=== PATIENT | female | born 1955 | race Caucasian/White ===

== ENCOUNTER 2019-06-16 08:20 | Emergency (ER) | payer MEDICARE, BC ==
[~2019-06-16] VITALS: Ht 160 cm; Wt 86.5 kg
[~2019-06-16 08:20] MED LIST: ACET-915; BEN25 PO; IBUP-1542 PO; RSP.5T
[2019-06-16 08:26] VITALS: Ht 160 cm; Wt 86.5 kg
[2019-06-16] MEDS ORDERED: KETOROLAC 30 MG INJ IM STA (09:31)
--- NOTE | 2019-06-16 09:44 | ERD ---
ER Documentation Chief Complaint Chief Complaint headache since this am; dizziness; neuro intact HPI 64-year-old female with no reported past medical or surgical history who presents with complaint of headache and dizziness since this morning. She denies any prior history of headache. Describes headache as frontal type headache. Dizziness is intermittent and occurs both at rest and when she is ambulating. She otherwise denies fevers, chills, neck stiffness, nausea, vomiting, blurry vision, double vision, chest pain, shortness of breath, dyspnea, cough or recent illness, recent new medication use, recent travel. ROS All systems reviewed and are negative except as per history of present illness. Medications Home Meds Active Scripts Diphenhydramine Hcl* (Benadryl*) 25 Mg Cap, 25 MG PO Q6, #30 CAP Prov:CARLOS ASHER PA-C 06/16/19 Ibuprofen* (Motrin*) 600 Mg Tab, 600 MG PO Q6, #30 TAB Prov:JEUDINE,GETHO PA-C 06/16/19 Reported Medications Risperidone* (Risperdal*) 0.5 Mg Tablet 12/25/09 Acetaminophen* (Tylenol*) 325 Mg Tab 12/25/09 Allergies Allergies: Coded Allergies: No Known Allergies (Verified Allergy, Mild, 12/25/09) PMhx/Soc History of Surgery: Yes (OVARIAN REMOVAL,kidney stone removal) Hx Neurological Disorder: No Hx Respiratory Disorders: No Hx Cardiac Disorders: No Hx Miscellaneous Medical Probl: No Hx Alcohol Use: No Hx Substance Use: No Hx Tobacco Use: No Smoking Status: Never smoker FmHx Family History: No diabetes, No coronary disease, No other Physical Exam Vitals Vital Signs Date Temp Pulse Resp B/P (MAP) Pulse Ox O2 O2 Flow FiO2 Time Delivery Rate 06/16/19 97.1 84 20 167/78 98 08:26 (107) Physical Exam I have reviewed the triage vital signs. Const: Well nourished, well developed, appears stated age Eyes: PERRL, no conjunctival injection HENT: NCAT, Neck supple without meningismus, no nystagmus CV: RRR, Warm, well-perfused extremities RESP: CTAB, Unlabored respiratory effort GI: soft, non-tender, non-distended, no masses MSK: No gross deformities appreciated Skin: Warm, dry. No rashes Neuro: grossly non focal Psych: Appropriate mood and affect. Results 24 hrs Current Medications Medications Dose Sig/Yovani Start Time Status Last (Trade) Ordered Route PRN Stop Time Admin Dose Reason Admin Ketorolac 30 mg ONCE STAT 06/16/19 DC 06/16/19 Tromethamine IM 09:31 06/16/19 09:39 (Toradol) 09:34 25 mg ONCE ONCE 06/16/19 06/16/19 Diphenhydrami PO 10:00 06/16/19 09:38 ne HCl 10:01 (Benadryl) 10 mg ONCE ONCE 06/16/19 06/16/19 Metoclopramid IM 10:00 06/16/19 09:38 e HCl 10:01 (Reglan) Procedures/MDM This patient presents with a headache most consistent with primary type headache. Differential diagnosis includes migraine versus tension type headache. No headache red flags. Neurologic exam without evidence of meningismus, focal neurologic findings. Presentation not consistent with acute intracranial bleed to include SAH (lack of risk factors, headache history). Presentation not consistent with acute [employer]RAF[employer] infection to include meningitis or brain abscess, Temporal arteritis unlikely, as is acute angle closure glaucoma given history and physical findings. Presentation not consistent with other acute, emergent causes of headache at this time. Plan to treat symptomatically with pain medication. No indication for imaging/LP at this time. ED course: Toradol, Benadryl, Reglan, will discharge with symptomatic care, strict return precautions explained in detail DISPOSITION PLAN: We discussed follow up with the patient's primary care doctor within 24 to 48 hours. Patient counseled regarding my diagnostic impression and care plan. Prior to discharge all questions answered. Pt agrees with treatment plan and understands strict return precautions. Precautionary instructions provided including instructions to return to the ER if not improving or for any worsening or changing symptoms or concerns. Disclaimer: Inadvertent spelling and grammatical errors are likely due to EHR/dictation software use and do not reflect on the overall quality of patient care. Also, please note that the electronic time recorded on this note does not necessarily reflect the actual time of the patient encounter. Departure Diagnosis: Primary Impression: Dizziness Additional Impression: Headache Condition: Stable Patient Instructions: Self-Care for Headaches Referrals: COMM[facility] CLIN[facility] YOU HAVE RECEIVED A MEDICAL SCREENING EXAM AND THE RESULTS INDICATE THAT YOU DO NOT HAVE A CONDITION THAT REQUIRES URGENT TREATMENT IN THE EMERGENCY DEPARTMENT. FURTHER EVALUATION AND TREATMENT OF YOUR CONDITION CAN WAIT UNTIL YOU ARE SEEN IN YOUR DOCTORS OFFICE WITHIN THE NEXT 1-2 DAYS. IT IS YOUR RESPONSIBILITY TO MAKE AN APPOINTMENT FOR FOLOW-UP CARE. IF YOU HAVE A PRIMARY DOCTOR --you should call your primary doctor and schedule an appointment IF YOU DO NOT HAVE A PRIMARY DOCTOR YOU CAN CALL OUR PHYSICIAN REFERRAL HOTLINE AT IF YOU CAN NOT AFFORD TO SEE A PHYSICIAN YOU CAN CHOSE FROM THE FOLLOWING THE [facility] [id number] [facility] [address] [facility] [facility] [address] [facility] [address] [facility] [address] [facility]. [address] Additional Instructions: Call your primary care doctor TOMORROW for an appointment during the next 2-3 days.See the doctor sooner or return here if your condition worsens before your appointment time. CARLOS ASHER PA-C Jun 16, 2019 09:44
[2019-06-16] MEDS ORDERED: DIPHENHYDRAMINE 25 MG CAP PO ONE (10:00)
[2019-06-16] MEDS ORDERED: METOCLOPRAMIDE 10 MG INJ IM ONE (10:00)
[2019-06-16 10:17] VITALS: BP 143/70; PULSE 77; RESP 20
== END 2019-06-16 10:19 | disposition home or self-care (01) ==
LOC: FTE 08:20
DX: R42 Dizziness and giddiness (principal); R51 Headache
CPT/HCPCS: 93005; 96372; 99284; J1885; J2765